=== PATIENT | female | born 1965 | race Hispanic/Latino ===

== ENCOUNTER 2024-07-24 22:14 | Emergency (ER) | payer BC, OTHER ==
[2024-07-24 23:12] LABS: #Basophils 0.06 10x3/uL (0.0-0.2); #Eosinophils 0.29 10x3/uL (0.0-0.5); #Monocytes 0.97 10x3/uL (0.0-1.1); #Neutrophils 6.69 10x3/uL (1.5-8.4); %Basophils 0.6 % (0.0-2.0); %Eosinophils 2.8 % (0.0-6.0); %Lymphocytes 23.1 % (18.0-47.0); %Monocytes 9.3 % (0.0-10.0); %Neutrophils 63.7 % (40.0-75.0); Hemoglobin 13.2 g/dL (12.0-15.5); Mean Corpuscular HGB CONC 33.8 g/dL (32.0-36.0); Mean Corpuscular Hemoglobin 30.7 pg (27.0-33.0); Mean Corpuscular Volume 90.7 fL (81.6-98.3); Mean Platelet Volume 10.8 fL (7.4-10.4); Platelet Count 231 10x3/uL (150-450); RBC Distribution Width 11.5 % (11.5-14.5); White Blood Cell (WBC) Count 10.5 10x3/uL (3.5-10.5)
[2024-07-24 23:26] LABS: ALT (SGPT) 24 U/L (8-55); AST (SGOT) 17 U/L (5-34); Alkaline Phosphatase 98 U/L (40-110); Anion Gap 14 mmol/L (10-20); BUN (Urea Nitrogen) 13 mg/dL (9.8-20.1); Bilirubin, Total 0.4 mg/dL (0.2-1.2); Calc. Creatinine Clearance 0 mL/min (70-130); Calcium 9.4 mg/dL (7.8-10.44); Carbon Dioxide 29 mmol/L (22-29); Chloride 100 mmol/L (98-107); Estimated GFR 84; Globulin 3.1 g/dL (2.4-3.5); Glucose 117 mg/dL (70-105); Potassium 3.6 mmol/L (3.5-5.1); Protein, Total 7.1 g/dL (6.0-8.3); Sodium 139 mmol/L (136-145)
[2024-07-24 23:29] LABS: Troponin I Less than 0.010 ng/mL (< 0.028)
[2024-07-25] MEDS ORDERED: Ibuprofen 200 MG TAB ONE (00:47)
== END 2024-07-25 01:26 | disposition home or self-care (01) ==
LOC: CSHERS 22:14
DX: I10 Essential (primary) hypertension (principal); R07.89 Other chest pain; Z79.899 Other long term (current) drug therapy
CPT/HCPCS: 36415; 71045; 80053; 83880; 84484; 85025; 93005

== ENCOUNTER 2025-07-27 07:05 | Outpatient (CLI) | payer BC, OTHER ==
[2025-07-27 10:50] LABS: Estimated GFR - POC 84.0
[2025-07-27] MEDS ORDERED: Iopamidol 300 61% 100 ML VIAL FS ONE (12:47)
== END 2025-07-27 07:06 | disposition home or self-care (01) ==
LOC: CSHCT 07:05
PROVIDERS: ATTEND Family Medicine
DX: R10.31 Right lower quadrant pain (principal)
CPT/HCPCS: 36415; 74177; 82565; Q9967